=== PATIENT | female | born 1965 | race Two or more races ===

== ENCOUNTER 2020-10-28 22:04 | Emergency (ER) | payer OTHER ==
[~2020-10-28] VITALS: Ht 170.2 cm; Wt 81.6 kg
[2020-10-28 22:04] VITALS: BP_SYST 128
[2020-10-29] MEDS ORDERED: HYDROcodone/ACETAMIN 10-325 MG TAB PO ONE
[2020-10-29] MEDS ORDERED: IBUPROFEN 800 MG TABLET PO ONE
[2020-10-29 00:20] VITALS: BP_SYST 112
== END 2020-10-29 00:20 | disposition home or self-care (01) ==
LOC: SED 22:04
DX: S42.252A Displaced fracture of greater tuberosity of left humerus, initial encounter for closed fracture (principal); W18.39XA Other fall on same level, initial encounter; Y93.89 Activity, other specified; Y92.89 Other specified places as the place of occurrence of the external cause; Y99.8 Other external cause status
CPT/HCPCS: 73030; 73060-TC; 99284